=== PATIENT | male | born 1980 | race Caucasian/White ===

== ENCOUNTER 2020-08-05 13:26 | Emergency (ER) | payer OTHER ==
[~2020-08-05] VITALS: Wt 86.2 kg
[~2020-08-05 13:26] MED LIST: MEDROL DOSEPAK4 MG PO; ROBAXIN500 MG PO; VICODIN 5/500 505 MG PO; VICODIN 500 MG-1 TAB PO
[2020-08-21] MEDS ORDERED: COLACE100 MG PO (10:59)
[2020-08-21] MEDS ORDERED: IBU800 M1 PO (10:59)
== END 2020-08-05 14:12 | disposition home or self-care (01) ==
LOC: ED 13:26
DX: K42.9 Umbilical hernia without obstruction or gangrene (principal)

== ENCOUNTER → 2020-08-16 | Outpatient (CLI) | payer OTHER ==
[~2020-08-16] MED LIST changes: +COLACE100 MG PO; +IBU800 M1 PO
== END | disposition home or self-care (01) ==
LOC: COVID19 09:52
PROVIDERS: ATTEND Surgery
DX: Z01.818 Encounter for other preprocedural examination (principal); Z20.828 Contact with and (suspected) exposure to other viral communicable diseases

== ENCOUNTER → 2020-08-21 | Day surgery (SDC) | payer OTHER ==
[2020-08-19 13:28] VITALS: BP 133/95
[~2020-08-21] VITALS: Ht 170.1 cm; Wt 86.2 kg
[2020-08-21 08:56] VITALS: BP 132/97
[2020-08-21 10:58] VITALS: BP 117/66
[2020-08-21 11:15] VITALS: BP 126/72
[2020-08-21 11:30] VITALS: BP 130/75
[2020-08-21 11:45] VITALS: BP 126/81
[2020-08-21 11:58] VITALS: BP 122/78
== END ==
LOC: SDC 08-18 13:15
PROVIDERS: ATTEND Surgery
DX: K43.6 Other and unspecified ventral hernia with obstruction, without gangrene (principal); Z87.891 Personal history of nicotine dependence

== ENCOUNTER 2021-05-22 13:48 | Emergency (ER) | payer OTHER ==
[~2021-05-22] VITALS: Ht 170.1 cm; Wt 99.8 kg
== END 2021-05-22 20:15 | disposition home or self-care (01) ==
LOC: ED 13:48
DX: S61.217A Laceration without foreign body of left little finger without damage to nail, initial encounter (principal); W26.8XXA Contact with other sharp object(s), not elsewhere classified, initial encounter; Y93.89 Activity, other specified; Y92.89 Other specified places as the place of occurrence of the external cause; Y99.9 Unspecified external cause status

== ENCOUNTER 2025-08-08 13:03 | Inpatient (IN) | payer OTHER ==
[2025-08-08] VITALS (8 sets, daily range): BP systolic 125–177; BP diastolic 54–111
[~2025-08-08] VITALS: Ht 167.6 cm; Wt 113.1 kg
[2025-08-08] MEDS ORDERED: SODIUM CHLORIDE 0.9% 1,000 ML IV ONE ×3 (13:55→16:50)
[2025-08-08] MEDS ORDERED: Ondansetron Hydrochloride 4 MG/2 ML VIAL IV ONE ×2 (14:00→18:30)
[2025-08-08] MEDS ORDERED: IOHEXOL 300 MG/ML 100 ML VIAL IV ONE (14:00)
[2025-08-08 14:09] LABS: BASO # 0.0 10*3/uL (0.0-0.1); BASO % 0.1 % (0.0-1.0); EOS # 0.0 10*3/uL (0.0-0.4); EOS % 0.1 % (1.0-4.0); MEAN CELL VOLUME 93.3 fl (80.0-94.0); MEAN CORPUSCULAR HGB 32.4 pg (27.0-31.0); MEAN PLATELET VOLUME 9.6 fl (9.6-12.3); MONO # 0.8 10*3/uL (0.1-1.0); MONO % 5.2 % (3.0-9.0); NEUT # 13.5 10*3/uL (2.3-7.9); NEUT % 87.9 % (47.0-73.0); NUCLEATED RED BLOOD CELL 0.0 % (0.0-0.0); NUCLEATED RED BLOOD CELL 0.0 10*3/uL (0.0-0.0); PLATELET COUNT AUTOMATED 222 10*3/uL (130-400); RED CELL DISTRI WIDTH 11.9 % (0-14.5)
[2025-08-08] MEDS ORDERED: IOHEXOL 300 MG/ML 100 ML VIAL ONE (14:21)
[2025-08-08 14:29] LABS: BUN 11 mg/dl (9-23); SGPT/ALT 52 U/L (5-49)
[2025-08-08 15:58] LABS: BILIRUBIN Negative (Negative); BLOOD Negative (Negative); CLARITY Clear (Clear); COLOR Yellow (Yellow); KETONE Negative (Negative); LEUKO ESTERASE Negative (Negative); NITRITE Negative (Negative); PH 5.5 (4.5-8.0); SPECIFIC GRAVITY >= 1.030 (1.001-1.030); UROBILINOGEN 0.2 E.U./dl (0.0-1.0)
[2025-08-08 16:06] LABS: EPITHELIAL CELLS 0-2; WBC 0-2 wbc/hpf (0-5)
[2025-08-08] MEDS ORDERED: Ondansetron Hydrochloride 4 MG/2 ML VIAL IV PRN (16:30)
[2025-08-08] MEDS ORDERED: BISACODYL 10 MG SUPP R PRN (16:30)
[2025-08-08] MEDS ORDERED: ACETAMINOPHEN 325 MG TAB PO PRN (16:30)
[2025-08-08] MEDS ORDERED: BISACODYL 5 MG TAB PO PRN (16:30)
[2025-08-08] MEDS ORDERED: ACETAMINOPHEN 650 MG SUPP R PRN (16:30)
[2025-08-08] MEDS ORDERED: ROCURONIUM BROMIDE 50 MG/5 ML SYRINGE IV ONE (18:30)
[2025-08-08] MEDS ORDERED: Ketamine Hydrochloride 500 MG/10 ML VIAL IV ONE (18:30)
[2025-08-08] MEDS ORDERED: Lidocaine Hydrochloride 5 ML VIAL IV ONE (18:30)
[2025-08-08] MEDS ORDERED: Midazolam Hydrochloride 2 MG/2 ML VIAL IV ONE (18:30)
[2025-08-08] MEDS ORDERED: Dexamethasone Sodium Phospha 4 MG/ML VIAL IV ONE (18:30)
[2025-08-08] MEDS ORDERED: SEVOFLURANE 250 ML BOT INH ONE (18:30)
[2025-08-08] MEDS ORDERED: PROPOFOL 200 MG/20 ML VIAL IV ONE (18:30)
[2025-08-08] MEDS ORDERED: SUGAMMADEX SODIUM 200 MG/2 ML VIAL IV ONE (18:30)
== END 2025-08-08 21:20 | disposition left against medical advice (07) | DRG 399 ==
LOC: ED 13:03 → EDHOLD 15:25 → 4E 18:23
PROVIDERS: Nurse Practitioner Family; ADMIT Internal Medicine; ATTEND Internal Medicine
PROC: 0DTJ4ZZ Resection of Appendix, Percutaneous Endoscopic Approach (ICD-10-PCS; principal; 2025-08-08)
DX: K35.30 Acute appendicitis with localized peritonitis, without perforation or gangrene (principal); D72.828 Other elevated white blood cell count; R74.01 Elevation of levels of liver transaminase levels; K21.9 Gastro-esophageal reflux disease without esophagitis; Z53.29 Procedure and treatment not carried out because of patient's decision for other reasons; R73.9 Hyperglycemia, unspecified; Z79.899 Other long term (current) drug therapy; Z79.01 Long term (current) use of anticoagulants; Z79.2 Long term (current) use of antibiotics; Z87.891 Personal history of nicotine dependence; Z83.3 Family history of diabetes mellitus; Z80.8 Family history of malignant neoplasm of other organs or systems